=== PATIENT | female | born 1990 ===

== ENCOUNTER 2018-07-05 11:55 | Observation (INO) | payer BC ==
[2018-07-05] MEDS ORDERED: IRONCAP19 OR (12:19)
[2018-07-05] MEDS ORDERED: PREN-96 PO (12:19)
[2018-07-05] MEDS ORDERED: FOLI1TAB6 PO (12:20)
[2018-07-05] MEDS: TERBUTALINE SULFATE 1 MG/ML 1ML VIAL SC SCH ×3 (12:43→13:23)
== END 2018-07-05 14:00 | disposition home or self-care (01) | DRG 833 ==
LOC: LDRP 11:55
PROVIDERS: ADMIT Obstetrics & Gynecology; ATTEND Obstetrics & Gynecology
DX: O60.03 Preterm labor without delivery, third trimester (principal); Z3A.33 33 weeks gestation of pregnancy
CPT/HCPCS: 59025; 81002; 96372; G0378; J3105